=== PATIENT | male | born 1950 | race Two or more races ===

== ENCOUNTER 2017-11-04 16:29 | Outpatient (CLI) | payer OTHER | END 2017-11-04 16:31 | disposition home or self-care (01) | LOC: RAD 16:29 | DX: S92.531A Displaced fracture of distal phalanx of right lesser toe(s), initial encounter for closed fracture (principal) ==

== ENCOUNTER → 2024-05-16 | Outpatient (CLI) | payer OTHER | END | disposition home or self-care (01) | LOC: RAD 11:31 | PROVIDERS: ATTEND Family Medicine | DX: R07.9 Chest pain, unspecified (principal) ==

== ENCOUNTER 2024-06-22 10:11 | Outpatient (CLI) | payer OTHER | END 2024-06-22 10:20 | disposition home or self-care (01) | LOC: RAD 10:11 | PROVIDERS: ATTEND Family Medicine | DX: M79.671 Pain in right foot (principal) ==

== ENCOUNTER 2024-08-31 15:54 | Outpatient (CLI) | payer OTHER | END 2024-08-31 15:59 | disposition home or self-care (01) | LOC: RAD 15:54 | PROVIDERS: ATTEND Physical Medicine & Rehabilitation | DX: M79.671 Pain in right foot (principal) ==

== ENCOUNTER 2025-01-11 12:39 | Outpatient (CLI) | payer OTHER | END 2025-01-11 12:44 | disposition home or self-care (01) | LOC: RAD 12:39 | PROVIDERS: ATTEND Family Medicine | DX: J20.9 Acute bronchitis, unspecified (principal) ==